=== PATIENT | female | born 1990 | race American Indian/Alaskan Native ===

== ENCOUNTER 2017-04-05 17:31 | Emergency (ER) | payer MEDICAID ==
[2017-04-05 17:43] VITALS: BP 125/81; PULSE 83; RESP 20; TEMP 97.8; O2SAT 98
[2017-04-05] MEDS ORDERED: Apap-Butalbital-Caffeine 325-50-40mg Tab PO STA (18:48)
[2017-04-05] MEDS ORDERED: Naproxen 550 mg Tab PO STA (18:49)
[2017-04-05] MEDS ORDERED: Apap-Butalbital-Caffeine 325-50-40mg Tab ONE (19:08)
[2017-04-05] MEDS ORDERED: Naproxen 550 mg Tab PO ONE (19:08)
--- NOTE | 2017-04-05 19:58 | C.PDOC ---
History Of Present Illness 27-year-old female, presents to the emergency department with complaints of headache described as diffuse and pressure like over the past two weeks. Patient states that initially, her headache was associated with numbness of the tongue. However, this resolved, but over the past 3-4 days she has been experiencing sore throat, body aches and cough. Denies nausea/vomiting, diarrhea , visual/speech changes, or any other associated symptoms. No other complaints at this time. Time Seen by Provider: 04/05/17 18:27 Chief Complaint (Nursing): Headache History Per: Patient History/Exam Limitations: no limitations Onset/Duration Of Symptoms: Days Current Symptoms Are (Timing): Still Present Past Medical History Reviewed: Historical Data, Nursing Documentation, Vital Signs Vital Signs: Last Vital Signs Temp 97.8 F 04/05/17 17:42 Pulse 83 04/05/17 17:42 Resp 20 04/05/17 17:42 BP 125/81 04/05/17 17:42 Pulse Ox 98 04/05/17 20:31 Family History: States: No Known Family Hx - Social History Hx Tobacco Use: No Hx Alcohol Use: No Hx Substance Use: No - Immunization History Hx Tetanus Toxoid Vaccination: No Hx Influenza Vaccination: No Hx Pneumococcal Vaccination: No Review Of Systems Except As Marked, All Systems Reviewed And Found Negative. Constitutional: Negative for: Fever, Chills ENT: Positive for: Throat Pain Respiratory: Positive for: Cough. Negative for: Shortness of Breath Gastrointestinal: Negative for: Nausea, Vomiting Neurological: Positive for: Headache. Negative for: Weakness, Numbness, Incoordination, Confusion, Dizziness Physical Exam - Physical Exam Appears: Non-toxic, No Acute Distress Skin: Warm, Dry, No Rash Head: Atraumatic, Normacephalic Eye(s): bilateral: Normal Inspection, PERRL, EOMI Nose: Normal Oral Mucosa: Moist Lips: Normal Appearing Throat: No Erythema, No Exudate Neck: Normal ROM, Supple, Other (No lymphadenopathy) Chest: Symmetrical, No Tenderness Cardiovascular: Rhythm Regular, No Murmur Respiratory: Normal Breath Sounds, No Accessory Muscle Use, No Stridor, No Wheezing Gastrointestinal/Abdominal: Soft, No Tenderness Back: Normal Inspection, No CVA Tenderness Extremity: Normal ROM, No Tenderness, No Swelling Neurological/Psych: Oriented x3, Normal Speech, Normal Motor Gait: Steady ED Course And Treatment O2 Sat by Pulse Oximetry: 98 (on RA) Pulse Ox Interpretation: Normal Medical Decision Making Medical Decision Making: On re-exam, the patient is resting comfortably. Lungs are CTA, heart is RRR, abdomen is soft, non-tender and the patient is tolerating po well. Ambulatory in the ED with steady gait. Follow up with the medical doctor within 1-2 days. Return if worsened. Disposition - Disposition Referrals: Juan C Douglas Jr., MD [Non-Staff] - Disposition: HOME/ ROUTINE Disposition Time: 20:26 Condition: GOOD Additional Instructions: Follow up with the medical doctor within 1-2 days. return if worsened. Prescriptions: Ibuprofen [Motrin] 600 mg PO TID #21 tab Loratadine [Claritin] 10 mg PO DAILY #10 tab predniSONE [Prednisone] 20 mg PO BID #10 tab Instructions: Acute Headache (DC) Forms: [email or web address] (Zimbabwean) - Clinical Impression Clinical Impression: Headache, Viral illness - Scribe Statement The provider has reviewed the documentation as recorded by the Scribe (Alexis Samayoa) All medical record entries made by the Scribe were at my direction and personally dictated by me. I have reviewed the chart and agree that the record accurately reflects my personal performance of the history, physical exam, medical decision making, and the department course for this patient. I have also personally directed, reviewed, and agree with the discharge instructions and disposition.
--- NOTE | 2017-04-05 20:17 | CT ---
EXAM: CT Head Without Intravenous Contrast EXAM DATE/TIME: 04/05/2017 6:48 PM CLINICAL HISTORY: 27 years old, female; Condition or disease; Headache; Headache not specified; Additional info: Headache x several months TECHNIQUE: Axial computed tomography images of the head/brain without intravenous contrast. All CT scans at this facility use one or more dose reduction techniques, viz.: automated exposure control; ma/kV adjustment per patient size (including targeted exams where dose is matched to indication; i.e. head); or iterative reconstruction technique. COMPARISON: There are no prior studies for comparison. FINDINGS: Brain: Ventricles are normal in size and configuration. There is no midline shift. There are no intra-axial or extra-axial mass lesions or areas of hemorrhage. There are no abnormal fluid collections. Sauceda-white differentiation is maintained. Ventricles: See above. Bones: Cranial vault is intact. Soft tissues: unremarkable Sinuses: There is ethmoid and sphenoid sinus disease Ears and mastoids: Middle ears and mastoids are unremarkable Orbits: Orbital contents are unremarkable. IMPRESSION: No acute intracranial abnormality; sinus disease
== END 2017-04-05 20:34 | disposition home or self-care (01) ==
LOC: C.ER 17:31
DX: B34.9 Viral infection, unspecified (principal); R51 Headache

== ENCOUNTER 2017-07-10 12:27 | Emergency (ER) | payer MEDICAID, OTHER ==
[2017-07-10 12:35] VITALS: BP 115/78; PULSE 78; RESP 20; TEMP 97.9; O2SAT 100
--- NOTE | 2017-07-10 13:07 | C.PDOC ---
History Of Present Illness 27yo female, presents to ED with complaints of sinus pressure, nasal congestion , consistent with prior presentations of seasonal allergies. Patient states she ran out of her allergy medication and is unsure of what to take. She also reports vague facial discomfort but denies any trauma or injuries. She has no fever, chills, chest pain, shortness of breath. She has no other medical complaints. Time Seen by Provider: 07/10/17 13:00 Chief Complaint (Nursing): Weakness/Neurological Deficit History Per: Patient History/Exam Limitations: no limitations Onset/Duration Of Symptoms: Days (2) Current Symptoms Are (Timing): Still Present Past Medical History Reviewed: Historical Data, Nursing Documentation, Vital Signs Vital Signs: Last Vital Signs Temp 97.9 F 07/10/17 12:33 Pulse 78 07/10/17 12:33 Resp 20 07/10/17 12:33 BP 115/78 07/10/17 12:33 Pulse Ox 100 07/10/17 14:30 - Medical History PMH: Anxiety, Depression Surgical History: No Surg Hx Family History: States: No Known Family Hx - Social History Hx Tobacco Use: No Hx Alcohol Use: No Hx Substance Use: No - Immunization History Hx Tetanus Toxoid Vaccination: No Hx Influenza Vaccination: No Hx Pneumococcal Vaccination: No Review Of Systems Except As Marked, All Systems Reviewed And Found Negative. Constitutional: Negative for: Fever, Chills ENT: Positive for: Nose Congestion, Other (sinus pressure) Cardiovascular: Negative for: Chest Pain Respiratory: Negative for: Shortness of Breath Physical Exam - Physical Exam Appears: Non-toxic, No Acute Distress Skin: Normal Color, Warm, Dry Head: Atraumatic, Normacephalic Eye(s): bilateral: Normal Inspection, PERRL, EOMI Nose: Normal, No Discharge Oral Mucosa: Moist Throat: Normal, No Erythema, No Exudate Neck: Normal ROM, Supple Chest: Symmetrical Cardiovascular: Rhythm Regular Respiratory: Normal Breath Sounds, No Wheezing Gastrointestinal/Abdominal: Normal Exam Neurological/Psych: Oriented x3, Normal Speech, Normal Cognition, Normal Cranial Nerves ED Course And Treatment O2 Sat by Pulse Oximetry: 100 (RA) Pulse Ox Interpretation: Normal Medical Decision Making Medical Decision Making: recurrent nasal congestion/seasonal allergies h/o same. NO neurological deficits NO susp of CVA/Arauz's Disposition Doctor Will See Patient In The: Office Counseled Patient/Family Regarding: Studies Performed, Diagnosis - Disposition Referrals: Juan C Douglas Jr., MD [Non-Staff] - Disposition: HOME/ ROUTINE Disposition Time: 13:07 Condition: GOOD Additional Instructions: continue nasal steroid sprays, like Flonase- one spray each nostril twice a day daily for the first week, then as needed. Instructions: Seasonal Allergies in Adults Forms: [employer] (Lithuanian) - Clinical Impression Clinical Impression: Nasal congestion - Scribe Statement The provider has reviewed the documentation as recorded by the Scribe (Gudelia Cavanaugh) Provider Attestation: Provider Attestation: All medical record entries made by the Scribe were at my direction and personally dictated by me. I have reviewed the chart and agree that the record accurately reflects my personal performance of the history, physical exam, medical decision making, and the department course for this patient. I have also personally directed, reviewed, and agree with the discharge instructions and disposition.
== END 2017-07-10 13:20 | disposition home or self-care (01) ==
LOC: C.ER 12:27
DX: R09.81 Nasal congestion (principal)

== ENCOUNTER 2017-12-08 20:01 | Emergency (ER) | payer MEDICAID, OTHER ==
[2017-12-08 20:01] VITALS: BMI 30.7
[2017-12-08 20:14] VITALS: BP 112/78; PULSE 94; TEMP 98.4; O2SAT 98
--- NOTE | 2017-12-08 20:39 | C.PDOC ---
History Of Present Illness 27 y/o female presents to the ER complaining of feeling anxious. Patient states that she had anxiety attacks for the past 2 days. Patient reports that she feels her her heart beating rapidly intermittently. She notes that she is stressed because she lost her job recently. She had similar episodes in the past but she did not speak to anyone. She has not been diagnosed and is requesting to speak with psychiatrist. She has decreased appetite and is unable to sleep. Denies having suicidal ideation and homicidal ideation. Time Seen by Provider: 12/08/17 20:15 Chief Complaint (Nursing): Anxiety History Per: Patient History/Exam Limitations: no limitations Onset/Duration Of Symptoms: Days Current Symptoms Are (Timing): Still Present Severity: Moderate Past Medical History Reviewed: Historical Data, Nursing Documentation, Vital Signs Vital Signs: Last Vital Signs Temp 98.4 F 12/08/17 20:09 Pulse 94 H 12/08/17 20:09 Resp 16 12/08/17 20:09 BP 112/78 12/08/17 20:09 Pulse Ox 98 12/08/17 20:09 - Medical History PMH: Anxiety, Depression, Migraine Denies: Chronic Kidney Disease Surgical History: No Surg Hx Family History: States: No Known Family Hx - Social History Hx Tobacco Use: No Hx Alcohol Use: No Hx Substance Use: No - Immunization History Hx Tetanus Toxoid Vaccination: No Hx Influenza Vaccination: No Hx Pneumococcal Vaccination: No Review Of Systems Cardiovascular: Positive for: Palpitations. Negative for: Chest Pain Respiratory: Negative for: Shortness of Breath Gastrointestinal: Negative for: Vomiting, Abdominal Pain Neurological: Negative for: Headache, Dizziness Psych: Positive for: Anxiety. Negative for: Suicidal ideation Physical Exam - Physical Exam Appears: Non-toxic, No Acute Distress Skin: Normal Color, Warm, Dry Head: Atraumatic, Normacephalic Eye(s): bilateral: Normal Inspection, EOMI Nose: Normal Oral Mucosa: Moist Neck: Supple Chest: Symmetrical Cardiovascular: Rhythm Regular Respiratory: Normal Breath Sounds, No Rales, No Rhonchi, No Wheezing Extremity: Bilateral: Atraumatic, Normal ROM Neurological/Psych: Oriented x3, Normal Speech ED Course And Treatment O2 Sat by Pulse Oximetry: 98 (RA) Pulse Ox Interpretation: Normal Medical Decision Making Medical Decision Making: Impression: Anxiety Plan: * CRISIS evaluation Per PES patient is stable for discharge and has follow up appointment with psych Dr Gresham on 12/15/17. Patient asking for something to help her sleep. Benadryl po given. Patient with family at bedside who will accompany her home. Disposition Counseled Patient/Family Regarding: Diagnosis, Need For Followup - Disposition Referrals: Luke Gresham MD [Staff Provider] - Joo Sifuentes MD [Medical Doctor] - Disposition: HOME/ ROUTINE Disposition Time: 21:30 Condition: GOOD Additional Instructions: [facility] at [address] [place] [address] on December 15. Please call [phone] or ext [phone] to change appointment. If you need to speak to someone immediately call Crisis Hotline [phone] Instructions: Anxiety, Adult (DC) Forms: [employer] (Turkish) - POA Present On Arrival: None - Clinical Impression Clinical Impression: Anxiety - PA / PLANNING AIDE / Resident Statement MD/DO has reviewed & agrees with the documentation as recorded. - Scribe Statement The provider has reviewed the documentation as recorded by the Freddie Carrillo Provider Attestation All medical record entries made by the Freddie were at my direction and personally dictated by me. I have reviewed the chart and agree that the record accurately reflects my personal performance of the history, physical exam, medical decision making, and the department course for this patient. I have also personally directed, reviewed, and agree with the discharge instructions and disposition.
[2017-12-08 21:33] VITALS: RESP 20
== END 2017-12-08 21:32 | disposition home or self-care (01) ==
LOC: C.ER 20:01
DX: F41.9 Anxiety disorder, unspecified (principal)